=== PATIENT | female | born 1935 | race Hispanic/Latino ===

== ENCOUNTER 2023-04-16 18:19 | Emergency (ER) | payer MEDICARE, OTHER ==
[2023-04-16] MEDS ORDERED: Bupivacaine 0.25% 10 ML VIAL ONE (19:45)
== END 2023-04-16 21:09 | disposition home or self-care (01) ==
LOC: ERS 18:19
DX: S01.311A Laceration without foreign body of right ear, initial encounter (principal); E11.9 Type 2 diabetes mellitus without complications; W18.30XA Fall on same level, unspecified, initial encounter; Z79.84 Long term (current) use of oral hypoglycemic drugs; Z79.899 Other long term (current) drug therapy
CPT/HCPCS: 12013; S0020